=== PATIENT | female | born 1935 | race Hispanic/Latino ===

== ENCOUNTER 2017-03-27 15:51 | Emergency (ER) | payer MEDICARE, MEDICAID ==
[~2017-03-27] VITALS: Ht 149.9 cm; Wt 50.0 kg
[~2017-03-27 15:51] MED LIST: ACTOPLUS M15 MG/500 OR; AMOXICILLIN500 MG PO; CIPROFLOXACN500 MG PO; DIABETIC MED; ONDANSETRON4 MG PO
[2017-03-27 16:05] VITALS: BP 136/66
[2017-03-27 18:20] LABS: HEMATOCRIT 33.1 % (37.0-47.0); HEMOGLOBIN 11.4 g/dl (12.0-16.0); IMMATURE GRANULOCYTES 0.5 % (0.0-1.0); MEAN CELL VOLUME 94.3 fL CALC (80.0-100.0); MEAN CORPUSCULAR HGB 32.5 pG CALC (26.0-32.0); MEAN CORPUSCULAR HGB CONC 34.4 g/L CALC (32.0-36.0); NEUT# 22.31 thou/uL (2.00-7.15); RED BLOOD COUNT 3.51 mill/uL (4.20-5.60); RED CELL DISTRI WIDTH 13.8 % (11.5-15.5)
[2017-03-27 18:32] LABS: ALBUMIN 4.2 g/dL (3.2-5.0); ALKALINE PHOSPHATASE 76 u/l (38-126); ANION GAP 17 (6-22 (CALC)); BILIRUBIN, TOTAL 0.4 mg/dL (0.0-1.4); BUN 34 mg/dL (8-23); BUN/CREATININE RATIO 51 (12-20 (CALC)); CALCIUM 9.9 mg/dL (8.4-10.2); CARBON DIOXIDE 24 mmol/l (22-30); CHLORIDE 102 mmol/l (95-108); CREATININE 0.7 mg/dL (0.5-1.0); GFR > 60 ML/MIN (>=60 (CALC)); GFR FOR AFR.AMER. > 60 ML/MIN (>=60 (CALC)); GLUCOSE 283 mg/dL (82-115); POTASSIUM 3.3 mmol/l (3.5-5.1); SGOT/AST 26 u/l (9-36); SGPT/ALT 26 u/l (11-66); SODIUM 140 mmol/l (137-146)
[2017-03-27] MEDS ORDERED: GLIPIZIDE10 M2 PO (21:13)
[2017-03-27] MEDS ORDERED: CLOPIDOGREL75 MG PO (21:13)
[2017-03-27] MEDS ORDERED: SIMVASTATIN40 MG PO (21:13)
[2017-03-27] MEDS ORDERED: DONEPEZIL5 MG PO (21:14)
[2017-03-27] MEDS ORDERED: LEVAQUIN500 MG PO (21:41)
== END 2017-03-27 22:15 | disposition left against medical advice (07) ==
LOC: ED 15:51
PROVIDERS: Emergency Medicine
DX: R41.82 Altered mental status, unspecified (principal); R55 Syncope and collapse; D72.829 Elevated white blood cell count, unspecified; R11.10 Vomiting, unspecified; H53.9 Unspecified visual disturbance; Z72.0 Tobacco use; E11.9 Type 2 diabetes mellitus without complications; Z79.84 Long term (current) use of oral hypoglycemic drugs; M54.5 Low back pain; Z91.19 Patient's noncompliance with other medical treatment and regimen